=== PATIENT | female | born 1955 | race Caucasian/White ===

== ENCOUNTER → 2018-12-22 | Day surgery (SDC) | payer BC ==
[~2018-12-22] MED LIST: ASPIR 8181 MG PO; ATORVASTATIN CA10 MG PO; BENICAR HCT 401 EACH PO; BIOTIN PO; FENTANYL CITRATE/PF 100MCG/2 ML INJ ONE; FLUOXETINE HCL20 M1 PO; HYDROCODONE/APAP 5MG-325MG TAB ONE; LIDOCAINE HCL 2% LOCAL INJ 5 ML SDV VIAL INJ ONE; MIDAZOLAM HCL 2 MG/2 ML VIAL ONE; NIFEDIPINE10 MG PO; PREVAGEN PO; PROPOFOL IV EMULSION 10 MG/ML 20 ML VIAL ONE; TYLENOL WITH C1 EACH PO
--- OUTSIDE RECORDS SUMMARY | 2018-12-22 09:10 | XMS REPORT | Clinical Summary ---
Author Author [facility] Address Unknown Phone Unavailable Care Team Providers Care Liquor Bridge Operator Helper Name Role Phone Fernando Luna MD PCP Allergies No Known Allergies Medications End Date Status Medication Sig Dispensed Refills Start Date Active valsartan-hydrochlorothia Take 1 tablet 0 zide (DIOVAN-HCT) by mouth 320-12.5 mg per tablet daily. Active atorvastatin (LIPITOR) 20 Take 20 mg by 0 MG tablet mouth daily. Default OP ins 01/10/2018 ondansetron ODT Take 1 tablet 20 tablet 0 (ZOFRAN-ODT) 4 MG (4 mg total) 8 disintegrating tablet by mouth every 8 (eight) hours as needed for nausea or vomiting for up to 30 days. 01/10/2018 furosemide (LASIX) 20 mg Take 1 tablet 30 tablet 0 tablet (20 mg total) 8 by mouth daily for 30 days. Active Problems Problem Noted Date Acute on chronic congestive heart failure 12/11/2017 Encounters Care Team Description Date Type Specialty Kyra Velasco MD Screening breast examination 06/30/2018 Hospital Radiology Encounter Kyra Velasco MD Screening breast examination (Primary Dx) 06/13/2018 Transcribe Access Orders after 12/21/2017 Social History Date Tobacco Use Types Packs/Day Years Used Never Smoker Smokeless Tobacco: Never Used Alcohol Use Drinks/Week oz/Week Comments No Sex Assigned at Date Recorded Not on file Industry Job Start Date Occupation Not on file Not on file Not on file Travel End Travel History Travel Start No recent travel history available. Last Filed Vital Signs Not on file Plan of Treatment Health Maintenance Due Date Last Done Comments CERVICAL CANCER SCREENING 1975 COLON CANCER SCREENING 2004 SHINGLES VACCINES (#1) 2004 INFLUENZA VACCINE 03/22/2019 BREAST CANCER SCREENING 06/30/2020 06/30/2018 Procedures Comments Procedure Name Priority Date/Time Associated Diagnosis MAMMO BREAST SCREEN Routine 06/30/2018 Screening breast TOMOSYNTHESIS BILATERAL 12:30 PM RESIDENTIAL SALES examination after 12/21/2017 Results * Mammo Breast Screen Tomosynthesis Bilateral (06/30/2018 12:30 PM RESIDENTIAL SALES) Narrative Performed At PROCEDURE: MAMMO BREAST SCREEN TOMOSYNTHESIS BILATERAL [facility] Computer aided detection was utilized for the interpretation of the digital bilateral screening mammography with tomosynthesis. COMPARISON: There is no prior studies available for comparison. DENSITY: Breast parenchyma is heterogeneously dense decreasing the sensitivity of the study. There are benign scattered calcifications. There is no suspicious masses, architectural distortions or grouped calcifications.. IMPRESSION:No mammographic evidence of malignancy. RECOMMENDATION: Comparison with physical exam and annual screening mammography. BI-RADS 2: Benign. This facility is accredited by the [employer] for Mammography. A negative x-ray report should not delay biopsy if a dominant or clinically suspicious mass is present.Not all cancers are identified by x-ray. [id number] Performing Organization Address City/State/Zipcode Phone Number [facility] [address] [place] [address] after 12/21/2017 Insurance Payer Benefit Subscriber ID Type Phone Address Plan / Group BCBS BCBS xxxxxxxxxxxx PPO CHOICE PPO/HEMALATHA JOYA PPO Advance Directives Patient has advance care planning documents on file. For more information, ray womack contact: Juan A Joshi [address] [place] [address]
[2018-12-22 12:15] VITALS: BP 140/68
== END | disposition home or self-care (01) ==
LOC: OR 08:35
PROVIDERS: ATTEND Surgery
DX: D50.0 Iron deficiency anemia secondary to blood loss (chronic) (principal); K21.0 Gastro-esophageal reflux disease with esophagitis; K44.9 Diaphragmatic hernia without obstruction or gangrene; K64.5 Perianal venous thrombosis; I10 Essential (primary) hypertension; R06.02 Shortness of breath; Z79.82 Long term (current) use of aspirin
CPT/HCPCS: 43235; 45378; J2001; J2250; J2704

== ENCOUNTER 2019-01-08 07:32 | Inpatient (IN) | payer BC ==
[~2019-01-08] VITALS: Ht 160 cm; Wt 85.7 kg
[~2019-01-08 07:32] MED LIST changes: -FENTANYL CITRATE/PF 100MCG/2 ML INJ ONE; -HYDROCODONE/APAP 5MG-325MG TAB ONE; -LIDOCAINE HCL 2% LOCAL INJ 5 ML SDV VIAL INJ ONE; -MIDAZOLAM HCL 2 MG/2 ML VIAL ONE; -PROPOFOL IV EMULSION 10 MG/ML 20 ML VIAL ONE
--- OUTSIDE RECORDS SUMMARY | 2019-01-08 07:35 | XMS REPORT | Clinical Summary ---
Author Author [facility] Organization [facility] Address Unknown Phone Unavailable Care Team Providers Care Electric Motors Salesperson Name Role Phone Fernando Luna MD PCP [...] (Primary Dx) 06/13/2018 Transcribe Access Orders after 01/07/2018 Social History Date Tobacco Use Types Packs/Day [...] 06/30/2018 Screening breast TOMOSYNTHESIS BILATERAL 12:30 PM HEAD START ASSISTANT TEACHER examination after 01/07/2018 Results * Mammo Breast Screen Tomosynthesis Bilateral (06/30/2018 12:30 PM HEAD START ASSISTANT TEACHER) Specimen Narrative Performed At PROCEDURE: MAMMO BREAST SCREEN [...] Benign. This facility is accredited by the [employer] for Mammography. A negative x-ray report should not delay biopsy if a dominant or clinically suspicious mass is present.Not all cancers are identified by x-ray. [id number] Performing Organization Address City/State/Zipcode Phone Number ANGELA LAURENT [address] [place] [address] after 01/07/2018 Insurance Type Payer Benefit Subscriber ID Effective Phone Address Plan / Dates Group PPO BCBS BCBS xxxxxxxxxxxx 2017-P CHOICE resent PPO/HEMALATHA JOYA PPO Advance Directives Patient has advance care planning documents on file. For more information, ray womack contact: Juan A oJshi [address] [place] [address]
[2019-01-08] MEDS ORDERED: BUPIVACAINE 0.25%/EPI 30ML SDV INJ ONE (08:40)
[2019-01-08] MEDS ORDERED: IBUPROFEN 800MG/ 250ML 250 ML IV ONE (11:22)
[2019-01-08] MEDS ORDERED: ACETAMINOPHEN 1000 MG/100 ML IV PRN (14:00)
[2019-01-08] MEDS ORDERED: NALOXONE HCL INJ 0.4 MG/ML AMP IV PRN (14:00)
[2019-01-08] MEDS ORDERED: ONDANSETRON HCL INJ 2MG/ML 2ML 2 MG/ML VIAL IV PRN (14:00)
--- OUTSIDE RECORDS SUMMARY | 2019-01-08 14:09 | XMS REPORT | Clinical Summary ---
Author Author [facility]co [facility] Organization [facility] Address Unknown Phone Unavailable Care Team Providers Care Shield Runner Name Role Phone Fernando Luna MD PCP [...] 06/30/2018 Screening breast TOMOSYNTHESIS BILATERAL 12:30 PM GLUING MACHINE ADJUSTER examination after 01/07/2018 Results * Mammo Breast Screen Tomosynthesis Bilateral (06/30/2018 12:30 PM GLUING MACHINE ADJUSTER) Specimen Narrative Performed At PROCEDURE: MAMMO BREAST [...] Organization Address City/State/Zipcode Phone Number ANGELA LAURENT [phone] [place] [address] after 01/07/2018 Insurance Type Payer Benefit Subscriber ID Effective Phone Address Plan / Dates Group PPO BCBS BCBS xxxxxxxxxxxx 2017-P CHOICE resent PPO/HEMALATHA JOYA PPO Advance Directives Patient has advance care planning documents on file. For more information, ray womack contact: Juan A Joshi [address] [place] [address]
[2019-01-08] MEDS ORDERED: HYDROMORPHONE 2MG/ML 2 MG/ML ML ONE (14:19)
--- NOTE | 2019-01-08 15:20 | NUR ---
REC'D PT FROM RECOVERY, O2 RUNNING AT 2L/MIN VIA NC, DRESSINGS TO THE ABDOMEN, NO S/S OF DISTRESS. PT HAS IV TO R FOREARM. TELE #12 ON RUNNING NSR. FLUIDS RUNNING AND PCP FOR PAIN CONTROL. SCDs ON BILATERALLY LE. 16 F SHAIKH INTACT. URINE YELLOW. NGT TO THE LEFT NARE. BED IN LOWEST POSITION, SIDE RAILS UP X2, AND CALL PAVON WITHIN REACH. FAMILY AT BEDSIDE.
[2019-01-08] MEDS ORDERED: FENTANYL CITRATE/PF 100MCG/2 ML INJ ONE (15:28)
[2019-01-08] MEDS ORDERED: MIDAZOLAM HCL 2 MG/2 ML VIAL ONE (15:28)
[2019-01-08 15:30] VITALS: BP 151/70
[2019-01-08 15:58] VITALS: BP 139/65
[2019-01-08] MEDS ORDERED: FLUOXETINE HCL20 M1 PO (16:33)
[2019-01-08] MEDS ORDERED: SODIUM CHLORIDE 0.9% 250ML 250 ML ONE (17:40)
[2019-01-08] MEDS ORDERED: CEFOXITIN SOD 1 GM in SODIUM CHLORIDE 0.9% 50ML 50 ML IV SCH ×4 (18:00)
--- NOTE | 2019-01-08 18:00 | NUR ---
LEFT IV 20 GAUGE TO HAND. PATIENT TOLERATED WELL.
[2019-01-08] MEDS: PANTOPRAZOLE 40 MG 10ML VIAL IV SCH (18:05)
[2019-01-08] MEDS: SODIUM CHLORIDE 0.9% 250ML IRRIG IR SCH ×2 (18:05→20:46)
[2019-01-08] MEDS: CEFOXITIN 1GM/ D5W 50ML 50 ML IV SCH (18:06)
[2019-01-08] MEDS: NITROGLYCERIN 2% OINT 1 GM PKT TOP SCH (18:06)
[2019-01-08 18:53] VITALS: BP 148/67
--- NOTE | 2019-01-08 19:15 | NUR ---
PATIENT RECEIVED. PATIENT IS RESTING IN BED, AAOX3. RESP EVEN AND UNLABORED WITH O2 AT 2L. NO ACUTE DISTRESS NOTED. SEMI AUTOMATIC SEWING MACHINE OPERATOR PUMP NOTED, PATIENT STATED LEVEL OF PAIN IS 6. MID ABD DRESSING NOTED, DRY AND INTACT. TELE IN PLACED NOTED. SHAIKH IN PLACED NOTED. LEFT NARE NG TUBE CONNECT TO SUCTION NOTED. SCD IS ON. CALL LIGHT WITHIN REACH. INSTRUCT TO CALL FOR ASSISTANCE. BED LOW/LOCKED. CONTINUE TO MONITOR CLOSELY
[2019-01-08 20:00] VITALS: BP 144/66
--- NOTE | 2019-01-08 20:20 | NUR ---
IRRIGATED NG TUBE PER MD ORDER.
[2019-01-08] MEDS: DEXTROSE 5%/LACTATED RINGERS 1,000 ML IV SCH (20:46)
--- NOTE | 2019-01-08 21:55 | Operative Report ---
DATE OF PROCEDURE: 01/08/2019 SURGEON: Chad Zamora MD PREOPERATIVE DIAGNOSIS: Large hiatal hernia with rotational gastric volvulus and gastroesophageal reflux disease. POSTOPERATIVE DIAGNOSIS: Large hiatal hernia with rotational gastric volvulus and gastroesophageal reflux disease. OPERATION PERFORMED: Laparoscopy, exploratory laparotomy and repair of large hiatal hernia with Abigail fundoplication. ATM MECHANIC: MARIELENA Hartman. ANESTHESIA: General. COMPLICATIONS: None. ESTIMATED BLOOD LOSS: 100 mL. DESCRIPTION OF PROCEDURE: With the patient lying in bed in the supine position, under good general endotracheal anesthesia, the abdomen was prepped with Betadine solution and draped in the usual manner. A Veress needle was introduced into the left mid abdomen and pneumoperitoneum was established without any difficulty. An 11 mm trocar was placed in the left mid abdomen and a 10 mm videolaparoscope was placed into the intraabdominal cavity. Under direct vision, three 5 mm trocars were placed in the upper abdomen. The left lobe of the liver was then retracted. An extra 11 mm trocar was then placed in the left anterior axillary line. Laparoscopy at this point revealed a huge hiatal hernia with probably at least 2/3rd of the stomach up in the chest with the stomach partially twisted up in the chest. There was a lot of adhesions from the stomach to the mediastinum and a hiatal hernia. We decided at this point to proceed to mobilize the stomach. The right crura was then freed up from the hernia sac and the right crura was identified and this was of good quality. The hernia sac was slowly and carefully brought down and the esophagus was identified anteriorly. The short gastrics on the left side were then taken down with the Harmonic Scalpel all the way up to the top and we were then able to get circumferentially around the esophagus. Bougie had been already placed. At this point, the large excess of the hernia sac was resected and removed and we were then able to see the crura on the left side. The crura on the left side was rather poor and we did not think we could get a satisfactory repair laparoscopically and perhaps mesh would be needed, so we decided to go ahead and convert the procedure to an open procedure to better be able to evaluate and feel exactly were the left crura was and whether a primary repair would be able to be achieved, as I did not want to use mesh unless it was absolutely necessary. The trocars were then removed. A midline incision was made, carried down through the subcutaneous tissue and the midline fascia. The peritoneum was opened and the abdomen was entered. Upon entering the abdominal cavity, a Jeffrey drain was then placed around the distal esophagus. Some of the posterior sac at this point was then resected as well. Additional gastric had previously been taken down and we then were able to examine the whole area well. It was clear at this point that there was some good crura on the left side, where it was way lateral. We went ahead at this point and then mobilized the left crura to be able to approximate it and four sutures of #1 Ethibond were then used posterior to the esophagus to slowly and carefully approximate the right and the left crura. This gave us a satisfactory closure. Once this was done, the fundus of the stomach which was somewhat tubular was then brought up in a retroesophageal fashion for a Abigail fundoplication and a Abigail fundoplication was then performed using interrupted sutures of 2-0 silk bringing one side of the fundus to the lower esophagus via the side of the fundus, creating a 360-degree Abigail fundoplication. Three sutures were necessary. This was a floppy type of Abigail fundoplication. The bougie was then removed. The NG tube was then placed in the stomach carefully and once this was done, the whole area was thoroughly irrigated. Perfect hemostasis was ascertained and the abdomen was then closed in layers. The fascia of the 11 mm trocar was then approximated with 0 Vicryl and the midline fascia was then closed with a running suture of #1 Vicryl. The skin was closed with clips. Dressings were applied. The sponge, lap, and needle count was correct. The patient tolerated the procedure well and returned to the recovery room in stable condition. MD YUMIKO Ellis/HAZEL /[id number]
[2019-01-08 23:57] VITALS: BP 142/65
[2019-01-09] VITALS (8 sets, daily range): BP systolic 112–171; BP diastolic 58–77
[2019-01-09] MEDS: CEFOXITIN 1GM/ D5W 50ML 50 ML IV SCH (00:42)
[2019-01-09] MEDS: NITROGLYCERIN 2% OINT 1 GM PKT TOP SCH ×4 (00:43→18:00)
[2019-01-09] MEDS: HYDROMORPHONE 0.2MG/ML-SOD CHL 30ML PCA SYRINGE IV PRN ×2 (01:02→18:16)
[2019-01-09] MEDS: SODIUM CHLORIDE 0.9% 250ML IRRIG IR SCH ×6 (01:06→22:16)
--- NOTE | 2019-01-09 01:07 | NUR ---
IRRIGATED NG TUBE PER MD ORDER.
--- NOTE | 2019-01-09 08:32 | NUR ---
Patient alert and responsive, in bed and NG tube in place to left nare to cont wall suction, flushed and remains patent, will monitor.
[2019-01-09 09:03] LABS: BASOPHILS % 0.1 % (0.0-1.0); HEMATOCRIT 33.3 % (34.2-44.1); HEMOGLOBIN 10.9 g/dL (12.0-16.0); LYMPHOCYTES # (AUTO) 1.8 (1.0-3.2); LYMPHOCYTES % 12.6 % (18.0-39.1); MEAN CORPUSCULAR HEMOGLOBIN 29.5 pg (28-32); MEAN CORPUSCULAR HGB CONC 32.7 g/dL (31-35); MEAN CORPUSCULAR VOLUME 90.2 fL (81-99); MONOCYTES # (AUTO) 1.5 (0.2-0.8); NEUTROPHILS # (AUTO) 11.2 (2.1-6.9); PLATELET COUNT 258 x10e3/uL (140-360); RED BLOOD COUNT 3.69 x10e6/uL (3.6-5.1); RED CELL DISTRIBUTION WIDTH 13.7 % (11.7-14.4)
[2019-01-09 09:25] LABS: ANION GAP 11.7 mmol/L (8-16); BLOOD UREA NITROGEN 20 mg/dL (7-26); BUN/CREATININE RATIO 24 (6-25); CALCIUM 9.7 mg/dL (8.4-10.2); CARBON DIOXIDE 30 mmol/L (22-29); CHLORIDE 100 mmol/L (98-107); CREATININE, SERUM 0.84 mg/dL (0.57-1.11); EST GLOMERULAR FILTRATION RATE > 60 ML/MIN (60-); GLUCOSE 125 mg/dL (74-118); POTASSIUM 3.7 mmol/L (3.5-5.1); SODIUM 138 mmol/L (136-145)
[2019-01-09] MEDS: DEXTROSE 5%/LACTATED RINGERS 1,000 ML IV SCH (10:02)
[2019-01-09 13:55] LABS: LYMPHOCYTES % (MANUAL) 10 % (19-48); MONOCYTES % (MANUAL) 15 % (3.4-9.0); NEUTROPHILS % (MANUAL) 72 % (40-74)
[2019-01-09 13:56] LABS: HYPOCHROMASIA SLIGHT; PLATELET ESTIMATE ADEQUATE; PLATELET MORPHOLOGY COMMENT NORMAL; RBC MORPHOLOGY COMMENT NORMAL
--- NOTE | 2019-01-09 14:45 | NUR ---
Visit made by the Spiritual Care Department Pastoral Visitor, Isa Lira. PV provided pastoral presence, prayer, hospitality, and supportive listening. Pastoral Visitor informed pt/family of the scope of [employer] and availability. MARKOS PEMBERTON Metal Cnc Operator Spiritual Care Department O: [phone] Pager: [phone] ([phone] number calling from)
[2019-01-09] MEDS: PANTOPRAZOLE 40 MG 10ML VIAL IV SCH (14:46)
--- NOTE | 2019-01-09 15:39 | NUR ---
Patient alert and responsive, OOB and sat on the edge of the bed for about half hour and wanted to get back to bed. Assisted back to bed, DOCKMASTER pump running, O2Sats low at 84 on RA and reapplied oxygen at 2L and at 95%. Call to RT for IS to be made available for use. Will monitor.
--- NOTE | 2019-01-09 19:23 | NUR ---
RECEIVED PATIENT AAOX3, RESTING IN BED. SOCIAL WORK PROFESSOR PUMP WITHIN REACH. SHAIKH TO GRAVITY. CALL LIGHT WITHIN REACH. NGT TO SUCTION. WILL CONTINUE TO MONITOR.
[2019-01-09] MEDS ORDERED: ONDANSETRON HCL INJ 2MG/ML 2ML 2 MG/ML VIAL ONE (20:12)
[2019-01-09] MEDS ORDERED: GLYCOPYRROLATE INJ 1MG/ 5 ML SYR ONE (20:12)
[2019-01-09] MEDS ORDERED: EPHEDRINE SULFATE INJ 50 MG/10 ML SYR ONE (20:12)
[2019-01-09] MEDS ORDERED: SEVOFLURANE INHAL SOLN 250 ML PEN BTL ONE (20:12)
[2019-01-09] MEDS ORDERED: CEFOXITIN SOD 1 GM VIAL ONE (20:12)
[2019-01-09] MEDS ORDERED: LIDOCAINE HCL 2% LOCAL INJ 5 ML SDV VIAL INJ ONE (20:12)
[2019-01-09] MEDS ORDERED: PROPOFOL IV EMULSION 10 MG/ML 20 ML VIAL ONE (20:12)
[2019-01-09] MEDS ORDERED: DEXAMETHASONE SOD PHOS INJ 4 MG/ML VIAL ONE (20:12)
[2019-01-09] MEDS ORDERED: NEOSTIGMINE 5 MG/5ML SYR ONE (20:12)
[2019-01-09] MEDS ORDERED: ROCURONIUM BROMIDE 10 MG/ML 5ML VIAL ONE (20:12)
--- NOTE | 2019-01-09 22:00 | NUR ---
patient has been refusing position changes, states abd hurts too much with movement. educated patient on importance of position changes to prevent pressure ulcers. patient verbalized understanding, but continues to refuse position changes.
[2019-01-09] MEDS: ACETAMINOPHEN 1000 MG/100 ML IV PRN (22:32)
[2019-01-10] VITALS (7 sets, daily range): BP systolic 141–185; BP diastolic 67–85
[2019-01-10] MEDS: NITROGLYCERIN 2% OINT 1 GM PKT TOP SCH ×4 (00:26→18:00)
[2019-01-10] MEDS: SODIUM CHLORIDE 0.9% 250ML IRRIG IR SCH ×2 (03:43→07:56)
[2019-01-10 05:34] LABS: BASOPHILS % 0.2 % (0.0-1.0); EOSINOPHILS % 0.2 % (0.0-6.0); HEMATOCRIT 33.5 % (34.2-44.1); HEMOGLOBIN 10.9 g/dL (12.0-16.0); LYMPHOCYTES # (AUTO) 1.4 (1.0-3.2); LYMPHOCYTES % 9.8 % (18.0-39.1); MEAN CORPUSCULAR HEMOGLOBIN 29.1 pg (28-32); MEAN CORPUSCULAR HGB CONC 32.5 g/dL (31-35); MEAN CORPUSCULAR VOLUME 89.3 fL (81-99); MONOCYTES # (AUTO) 1.3 (0.2-0.8); MONOCYTES % 9.1 % (4.4-11.3); NEUTROPHILS # (AUTO) 11.6 (2.1-6.9); NEUTROPHILS % 80.1 % (38.7-80.0); PLATELET COUNT 221 x10e3/uL (140-360); RED BLOOD COUNT 3.75 x10e6/uL (3.6-5.1); RED CELL DISTRIBUTION WIDTH 13.4 % (11.7-14.4)
[2019-01-10 05:51] LABS: ANION GAP 7.4 mmol/L (8-16); BLOOD UREA NITROGEN 11 mg/dL (7-26); BUN/CREATININE RATIO 15 (6-25); CALCIUM 10.2 mg/dL (8.4-10.2); CARBON DIOXIDE 32 mmol/L (22-29); CHLORIDE 101 mmol/L (98-107); CREATININE, SERUM 0.74 mg/dL (0.57-1.11); EST GLOMERULAR FILTRATION RATE > 60 ML/MIN (60-); GLUCOSE 111 mg/dL (74-118); POTASSIUM 3.4 mmol/L (3.5-5.1); SODIUM 137 mmol/L (136-145)
[2019-01-10] MEDS: DEXTROSE 5%/LACTATED RINGERS 1,000 ML IV SCH ×3 (05:51→22:51)
--- NOTE | 2019-01-10 06:42 | NUR ---
left hand iv infiltrated, removed with cath tip intact. new iv placed to right wrist 20g. rodriguez cath removed, patient tolerated well. dtv.
--- NOTE | 2019-01-10 07:23 | NUR ---
Rcvd patient in report this am. Patient is awake in bed. NO s/s of distress noted. Patient is NPO at this time
--- NOTE | 2019-01-10 08:42 | NUR ---
Patient voided at this time
[2019-01-10] MEDS ORDERED: BISACODYL 10 MG SUPP PR ONE (09:00)
[2019-01-10] MEDS ORDERED: HYDROMORPHONE 2MG/ML 2 MG/ML ML IV PRN (11:00)
--- NOTE | 2019-01-10 11:00 | NUR ---
Notified Dr. Bonilla of K 3.4 and SBP 188 and states will monitor and it should stabilize
--- NOTE | 2019-01-10 11:01 | NUR ---
NG tube removed at this time and HANDBAG STITCHER pump also d/c'd
[2019-01-10] MEDS: PANTOPRAZOLE 40 MG 10ML VIAL IV SCH (14:00)
[2019-01-10] MEDS: ACETAMINOPHEN 1000 MG/100 ML IV PRN ×2 (14:18→23:29)
--- NOTE | 2019-01-10 14:18 | NUR ---
Patient OOB and ambulating in the room, had a small BM at this time, back to bed, medicated with APAP IV per her request, will monitor
--- NOTE | 2019-01-10 17:48 | NUR ---
Call from Dr. Bonilla and to offer patient sips of water only, no carbonated drinks. Patient had a small BM earlier this afternoon and remains NPO. VSS, medicated with APAP IV for pain, will monitor.
--- NOTE | 2019-01-10 19:15 | NUR ---
received patient aaox3, resting in bed. daughter at bedside. no needs voiced. bed locked and in lowest position, call light within reach.
[2019-01-10] MEDS: BISACODYL 10 MG SUPP PR SCH (21:39)
--- NOTE | 2019-01-10 23:54 | NUR ---
report given to oncoming nurse for continuity of care
[2019-01-11] VITALS (10 sets, daily range): BP systolic 123–157; BP diastolic 58–87
[2019-01-11] MEDS: DEXTROSE 5%/LACTATED RINGERS 1,000 ML IV SCH ×2 (00:05→13:14)
[2019-01-11] MEDS: NITROGLYCERIN 2% OINT 1 GM PKT TOP SCH ×3 (00:05→12:38)
[2019-01-11 05:44] LABS: BASOPHILS % 0.3 % (0.0-1.0); EOSINOPHILS # (AUTO) 0.1 (0.0-0.4); EOSINOPHILS % 0.6 % (0.0-6.0); HEMATOCRIT 31.1 % (34.2-44.1); HEMOGLOBIN 10.4 g/dL (12.0-16.0); LYMPHOCYTES # (AUTO) 1.7 (1.0-3.2); MEAN CORPUSCULAR HEMOGLOBIN 29.9 pg (28-32); MEAN CORPUSCULAR HGB CONC 33.4 g/dL (31-35); MEAN CORPUSCULAR VOLUME 89.4 fL (81-99); MONOCYTES # (AUTO) 1.2 (0.2-0.8); MONOCYTES % 8.3 % (4.4-11.3); NEUTROPHILS # (AUTO) 10.9 (2.1-6.9); NEUTROPHILS % 78.4 % (38.7-80.0); PLATELET COUNT 237 x10e3/uL (140-360); RED BLOOD COUNT 3.48 x10e6/uL (3.6-5.1)
[2019-01-11 05:59] LABS: BLOOD UREA NITROGEN 9 mg/dL (7-26); BUN/CREATININE RATIO 14 (6-25); CARBON DIOXIDE 32 mmol/L (22-29); CHLORIDE 104 mmol/L (98-107); CREATININE, SERUM 0.64 mg/dL (0.57-1.11); EST GLOMERULAR FILTRATION RATE > 60 ML/MIN (60-); GLUCOSE 98 mg/dL (74-118); SODIUM 142 mmol/L (136-145)
--- NOTE | 2019-01-11 07:10 | NUR ---
pt sitting in chair at bedside, resp even and unlabored at this time, no distress noted pt able to make needs known no c/o of pain when asked, call light in reach ,family member at bedside.
[2019-01-11] MEDS: BISACODYL 10 MG SUPP PR SCH ×2 (08:00→20:57)
[2019-01-11] MEDS ORDERED: POTASSIUM CHLORIDE 20 MEQ TAB CR PO NR ×2 (08:30→13:15)
--- NOTE | 2019-01-11 08:50 | NUR ---
pt received 1 dose of 40 lyndsey in orange juice, for K= at 3.0, will cont to monitor, call light in reach , family member at bedside.
[2019-01-11] MEDS: PANTOPRAZOLE 40 MG 10ML VIAL IV SCH (13:56)
[2019-01-11] MEDS ORDERED: HYDROCODONE/APAP 7.5MG-325MG 1 EA TAB PO PRN (17:15)
[2019-01-11] MEDS: ACETAMINOPHEN 1000 MG/100 ML IV PRN (18:45)
--- NOTE | 2019-01-11 19:32 | NUR ---
REPORT GIVEN TO ONCOMING NURSE. FOR CONTINUED CARE.
[2019-01-12] MEDS: DEXTROSE 5%/LACTATED RINGERS 1,000 ML IV SCH (02:27)
[2019-01-12 04:11] VITALS: BP 159/74
--- NOTE | 2019-01-12 07:24 | NUR ---
REPORT GIVEN TO ONCOMING NURSE, PATIENT IN STABLE CONDITION. BED LOCKED AND IN LOWEST POSITION, CALL LIGHT WITHIN EASY REACH.
[2019-01-12] MEDS: BISACODYL 10 MG SUPP PR SCH (08:00)
[2019-01-12 08:32] VITALS: BP 153/67
[2019-01-12] MEDS ORDERED: NIFEDIPINE 10 MG CAP PO SCH (09:00)
[2019-01-12] MEDS ORDERED: NIFEDIPINE CR 30 MG TAB PO SCH (09:00)
[2019-01-12] MEDS ORDERED: FLUOXETINE HCL 20 MG CAP PO SCH (09:00)
--- NOTE | 2019-01-12 10:34 | NUR ---
SITTING IN BS CHAIR, WITH STANDBY ASSIST, PT OUT OF CHAIR TO BR TO VOID, CALL STRING WITHIN REACH
[2019-01-12 10:36] VITALS: BP 153/67
[2019-01-12 12:00] VITALS: BP 177/77
[2019-01-12] MEDS: PANTOPRAZOLE 40 MG 10ML VIAL IV SCH (14:49)
--- NOTE | 2019-01-12 16:16 | NUR ---
MD Shon DELONG INTO SEE PT, DISCUSSED DISCHARGE INSTRUCTIONS, REMOVED AND PLACED NEW DRESSING, PT TOLERATED WELL, DENIES PAIN AT THIS TIME, CALL LIGHT WITHIN REACH
[2019-01-12] MEDS ORDERED: PANTOPRAZOLE SO40 MG PO (16:25)
[2019-01-12 16:27] VITALS: BP 167/74
== END 2019-01-12 16:43 | disposition home or self-care (01) | DRG 328 ==
LOC: OR 07:32 → PACU V 13:56 → MED/SURG 15:02
PROVIDERS: ADMIT Surgery; ATTEND Surgery
PROC: 0DV44ZZ Restriction of Esophagogastric Junction, Percutaneous Endoscopic Approach (ICD-10-PCS; 2019-01-08)
PROC: 0BJT4ZZ Inspection of Diaphragm, Percutaneous Endoscopic Approach (ICD-10-PCS; 2019-01-08)
PROC: 0BQT0ZZ Repair Diaphragm, Open Approach (ICD-10-PCS; principal; 2019-01-08 09:00)
DX: K44.9 Diaphragmatic hernia without obstruction or gangrene (principal); I10 Essential (primary) hypertension
CPT/HCPCS: 36415; 80048; 85025; C1766; J0694; J1100; J2001; J2250; J2405; J7050

== ENCOUNTER → 2025-03-29 | Outpatient (REF) | payer MEDICARE ==
[~2025-03-29] MED LIST changes: +AMLODIPINE BESY10 MG PO; +ASPIRIN81 MG PO; +GOLO PO; +LOPERAMIDE2 MG PO; +METOPROLOL TART50 MG PO; +PANTOPRAZOLE SO40 MG PO; +SERTRALINE HCL25 MG; +TRAZODONE HCL50 MG PO
== END ==
LOC: US 10:23
PROVIDERS: ATTEND Internal Medicine
DX: E04.2 Nontoxic multinodular goiter (principal)
CPT/HCPCS: 10005; 88172; 88173; 88305